=== PATIENT | male | born 1960 | race Caucasian/White ===

== ENCOUNTER → 2016-06-20 | Outpatient (CLI) | payer MEDICARE ==
--- NOTE | 2016-06-20 10:23 | CT ---
EXAM DESCRIPTION: CT CHEST WITH IV CONTRAST; CT ABDOMEN WITHOUT THEN WITH IV CONTRAST CLINICAL HISTORY: 55 y/o M, RECTAL CANCER COMPARISON: October 10, 2013. TECHNIQUE: After oral and IV contrast were administered thin slice axial images of the chest and abdomen were acquired. The data was reformatted for interpretation. FINDINGS: There is no axillary or supraclavicular lymphadenopathy. Sclerotic foci noted about the endplates of T11, T10 and T9. These are likely related to degeneration. No lytic or blastic lesion seen within the abdomen or pelvis. There is mass effect upon the trachea which is seen on the 1st image. There is likely a mass seen resulting in deviation of the trachea to the right. This mass demonstrates central calcifications and may be compatible with a mucinous metastatic lesion. Heart size is unremarkable. No pericardial disease. No lymphadenopathy. Multiple metastatic lesions seen within the chest, bilateral lungs. The largest is seen traversing both the inferior margin of the right upper lobe and the right middle lobe. This measures 5.8 cm craniocaudal by 6.3 cm AP x 10.0 cm craniocaudal. Metastatic lesions noted within the spleen, liver and right kidney. Colonostomy noted. Atherosclerotic disease noted within the abdominal aorta. Negative for aneurysm. No definitive lymphadenopathy noted. IMPRESSION: Today's exam demonstrates metastatic lesions to bilateral lungs, the left larynx, the right kidney, the spleen and the liver. The metastatic disease to the spleen and right kidney are new when compared to the CT of the abdomen and pelvis from October of 2013. The low density noted within the liver was noted on prior study. These findings are compatible with worsening of patient's metastatic disease. The the left laryngeal mass is incompletely evaluated on today's exam. The patient is at risk of laryngeal obstruction. Recommend dedicated imaging. Extensive emphysema noted. Electronically signed by: Scottie Colorado MD 06/20/2016 10:21
== END ==
LOC: CT 08:16
PROVIDERS: ATTEND Internal Medicine Medical Oncology
DX: C20 Malignant neoplasm of rectum (principal); C78.39 Secondary malignant neoplasm of other respiratory organs; C78.89 Secondary malignant neoplasm of other digestive organs; C79.01 Secondary malignant neoplasm of right kidney and renal pelvis; C78.7 Secondary malignant neoplasm of liver and intrahepatic bile duct; J43.9 Emphysema, unspecified

== ENCOUNTER 2016-07-23 20:19 | Emergency (ER) | payer MEDICARE ==
[2016-07-23] MEDS ORDERED: IPRATROPIUM/ALBUTEROL 3 ML VIAL NEB ONE ×2 (20:23→20:42)
[2016-07-23] MEDS ORDERED: HYDROcodone 10MG/APAP 325MG 1 EA TAB PO ONE (20:53)
--- NOTE | 2016-07-23 21:39 | ED.PDOC ---
History of Present Illness - General Chief Complaint: Respiratory Problem Stated Complaint: short of breath Time Seen by Provider: 07/23/16 21:35 Source: RN notes reviewed, Vital Signs reviewed, family Exam Limitations: physical impairment - patient on tracheostomy - History of Present Illness Initial Comments: Jing 56 y/o male with history of colon cancer with distant metastases to multiple organs brought by home health nurse after they called up with patient reported SOB.Under went multiple chemo but cancer continue to spread the last oncologist that saw him stating further treatment is futile and and need to be in hospice carewhrupal smith is planning this 07/26/2016 Timing/Duration: 4-6 hours Severity: severe Improving Factors: nothing Worsening Factors: other - metastatic colon ca Associated Symptoms: diaphoresis Allergies/Adverse Reactions: Allergies Meperidine [From Demerol HCl] Allergy (Verified 04/27/15 15:03) Penicillins Allergy (Verified 04/27/15 15:03) Review of Systems - Review of Systems Constitutional: States: diaphoresis, other - weight loss progressive EENTM: States: no symptoms reported Respiratory: States: short of breath Cardiology: States: no symptoms reported Gastrointestinal/Abdominal: States: no symptoms reported Genitourinary: States: no symptoms reported Musculoskeletal: States: no symptoms reported Skin: States: no symptoms reported Neurological: States: no symptoms reported Endocrine: States: no symptoms reported Hematologic/Lymphatic: States: no symptoms reported Past Medical History (General) - Patient Medical History Hx Cardiac Disorders: No Hx Congestive Heart Failure: No Hx Diabetes: No Hx Cancer: Yes - colon with distant metastases Surgical History: cancer surgery - colon Family Medical History - Family History Father Living Status: Cause of : colorectal CA Hx Family Cancer: Yes - colon Physical Exam - Physical Exam General Appearance: Alert, Anxious, Obvious distress Ears, Nose, Throat: hearing grossly normal, normal ENT inspection, normal pharynx, other - tracheostomy patent Neck: non-tender, other - tracheostomy tube in place Respiratory: decreased breath sounds, other - tachypneic Cardiovascular/Chest: no gallop, no murmur, tachycardia Peripheral Pulses: radial,right: 2+, radial,left: 2+ Gastrointestinal/Abdominal: normal bowel sounds, non tender, no pulsatile mass Back Exam: normal inspection, no CVA tenderness, no vertebral tenderness Extremity: normal range of motion, non-tender, normal inspection Neurologic: alert Skin Exam: normal color, warm/dry Progress - Progress Progress: 07/24/16 01:05 Discuss DNR on this patient initially signed it but retracted his signed form and wanting to be Full code again.He is about to be admitted to palliative care 07/26/2016. 07/24/16 01:12 He is presently on 5 liters o2/nc and aerosolized 02 at 15 liters - Results/Orders Results/Orders: 07/23/16 20:23 SVN/Updraft Therapy ONCE 07/23/16 21:21 Arterial Blood Gas Stat Laboratory Results WBC 15.0 K/mm3 (4.8-10.8) H 07/23/16 20:21 RBC 3.46 M/mm3 (4.70-6.10) L 07/23/16 20:21 Hgb 10.9 gm/dL (14.0-18.0) L 07/23/16 20:21 Hct 32.8 % (42.0-52.0) L 07/23/16 20:21 MCV 94.8 fl (80.0-94.0) H 07/23/16 20:21 MCH 31.5 pg (27.0-31.0) H 07/23/16 20:21 MCHC 33.1 g/dL (33.0-37.0) 07/23/16 20:21 RDW 15.0 % (11.5-14.5) H 07/23/16 20:21 Plt Count 411 K/mm3 (130-400) H 07/23/16 20:21 MPV 6.8 fl (7.40-10.4) L 07/23/16 20:21 Absolute Neuts (auto) 12.90 K/uL (1.8-6.8) H 07/23/16 20:21 Absolute Lymphs (auto) 1.00 K/uL (1.0-3.4) 07/23/16 20:21 Absolute Monos (auto) 1.00 K/uL (0.2-0.8) H 07/23/16 20:21 Absolute Eos (auto) 0.10 K/uL (0.0-0.4) 07/23/16 20:21 Absolute Basos (auto) 0.10 K/uL (0.0-0.1) 07/23/16 20:21 Neutrophils % 85.8 % (42.0-78.0) H 07/23/16 20:21 Lymphocytes % 6.8 % (20.0-50.0) L 07/23/16 20:21 Monocytes % 6.6 % (2.0-9.0) 07/23/16 20:21 Eosinophils % 0.4 % (1.0-5.0) L 07/23/16 20:21 Basophils % 0.4 % (0.0-2.0) 07/23/16 20:21 D-Dimer, Quantitative 1657 ng/mL (0-230) H* 07/23/16 20:21 Sodium 127 mmol/L (135-145) L 07/23/16 20:21 Potassium 4.6 mmol/L (3.6-5.0) 07/23/16 20:21 Chloride 93 mmol/L (101-111) L 07/23/16 20:21 Carbon Dioxide 25 mmol/L (21-31) 07/23/16 20:21 Anion Gap 13.6 (12-18) 07/23/16 20:21 BUN 22 mg/dL (7-18) H 07/23/16 20:21 Creatinine 0.59 mg/dL (0.6-1.3) L 07/23/16 20:21 BUN/Creatinine Ratio 37.3 (10-20) H 07/23/16 20:21 Random Glucose 123 mg/dL (70-105) H 07/23/16 20:21 Serum Osmolality 259.9 mOsm/L (275-295) L 07/23/16 20:21 Calcium 8.9 mg/dL (8.4-10.2) 07/23/16 20:21 Total Bilirubin 0.5 mg/dL (0.2-1.0) 07/23/16 20:21 AST 50 IU/L (10-42) H 07/23/16 20:21 ALT 29 IU/L (10-60) 07/23/16 20:21 Alkaline Phosphatase 163 IU/L (42-121) H 07/23/16 20:21 B-Natriuretic Peptide 119.0 pg/ml (0-100) H 07/23/16 20:21 Serum Total Protein 6.8 gm/dL (6.4-8.2) 07/23/16 20:21 Albumin 2.9 g/dl (3.2-5.5) L 07/23/16 20:21 Globulin 3.9 gm/dL (2.3-3.5) H 07/23/16 20:21 Albumin/Globulin Ratio 0.7 (1.1-1.9) L 07/23/16 20:21 Patient ABO/Rh A NEGATIVE 07/23/16 21:00 - EKG/XRAY/CT EKG: Sinus, Tachy XRAY: chest - right basilar pneumothorax;multifocal opacities Departure - Departure Clinical Impression: Acute dyspnea, Colon cancer metastasized to multiple sites, Pneumothorax on right, Status post tracheostomy Time of Disposition: 01:11 - D/W Dr. J Luis Dawkins[facility] Disposition: Transfer to Hospital Condition: Fair Departure Forms: ED Discharge - Pt. Copy, Patient Portal Self Enrollment
[2016-07-23] MEDS ORDERED: HYDROmorphone HCL INJ 2 MG/ML VIAL IV ONE (23:11)
[2016-07-23] MEDS ORDERED: CYCLOBENZAPRINE HCL 10 MG TAB PO ONE (23:47)
[2016-07-24] MEDS ORDERED: HYDROcodone 10MG/APAP 325MG 1 EA TAB PO ONE (01:42)
[2016-07-24] MEDS ORDERED: HYDROcodone 10MG/APAP 325MG 1 EA TAB ONE (01:47)
[2016-07-24 03:55] VITALS: BP 152/94; TEMP 97.9; O2SAT 91
--- NOTE | 2016-08-08 00:04 | RAD ---
EXAM: Chest,1 View CLINICAL INDICATION: 56-year-old male with shortness of breath. TECHNIQUE: Single view, AP portable chest was obtained. COMPARISON: 08/24/2010. FINDINGS: Tracheostomy tube present at the level of the thoracic inlet. LEFT chest wall port catheter tip terminates at the cephalad aspect superior vena cava. Innumerable foci of rounded opacification present throughout the bilateral lungs suggestive of metastasis. Small focal lucency present at the level of the RIGHT lung base compatible with pneumothorax. The pneumothorax measures approximately 3 cm from thew RIGHT chest wall. An approximately 2 cm from the diaphragmatic dome. The LEFT hemithorax reveals multifocal opacities compatible with metastasis without findings to suggest pneumothorax or pleural effusion. No right-sided pleural effusion. Deformity of the right-sided ribs may reflect sequela of prior trauma or surgery. The largest conglomerate opacification within the RIGHT hemithorax measures 12.4 cm in maximal dimension. The largest opacification on the LEFT at the level of the hilar region measures 3.5 cm in maximal diameter. IMPRESSION: 1. Small RIGHT basilar pneumothorax.2. Multifocal opacities as detailed above compatible with metastatic disease as detailed above. Electronically signed by: Dominga Estrada MD 07/23/2016 9:19 PM DIRECTOR OF NURSES REGISTRY
== END 2016-07-24 01:45 | disposition short-term general hospital (02) ==
LOC: ER 20:19
DX: C18.9 Malignant neoplasm of colon, unspecified (principal); C79.9 Secondary malignant neoplasm of unspecified site; J93.9 Pneumothorax, unspecified; R06.00 Dyspnea, unspecified; Z93.0 Tracheostomy status; Z88.0 Allergy status to penicillin; Z88.8 Allergy status to other drugs, medicaments and biological substances; Z80.0 Family history of malignant neoplasm of digestive organs
CPT/HCPCS: 36600; 71010; 80053; 82803; 82805; 83880; 85025; 85379; 86900; 86901; 94640; J1170; J7620

== ENCOUNTER 2016-07-28 18:09 | Inpatient (IN) | payer OTHER ==
[~2016-07-28 18:09] MED LIST: SODIUM CHLORIDE 0.9% 1000ML 1,000 ML IVS ONE
[2016-07-29] MEDS ORDERED: ACETAMINOPHEN SUPPOSITORY 650 MG PR ONE (01:07)
--- NOTE | 2016-07-29 09:33 | HP ---
SUPERVISING PHYSICIAN: J Luis Ness MD CHIEF COMPLAINT: Respiratory failure secondary to multiple problems related to a colorectal cancer metastasis. HISTORY OF PRESENT ILLNESS: Mr. Starks is a 56-year-old, male patient with a history of colon cancer status post resection who presented to the Emergency Department on 07/23/16 in [place] complaining of shortness of breath which had started two days previous to his admission. He has undergone multiple chemotherapy treatments, but now has metastasis to the lungs, larynx, liver. In the Emergency Department, he was complaining of shortness of breath and was eventually transferred to [facility] after it was discussed with the patient about a DNR status, however, he wanted to be fully resuscitated if possible and if not improving, to be put on hospice palliative care on 07/26/16. In the Emergency Room, he was found to have a right basilar pneumothorax with acute dyspnea secondary to metastasis at multiple sites as well as tracheostomy. He was transferred to [facility] where he underwent a chest tube placement and aggressive treatment with antibiotics and respiratory consultation. He continued to deteriorate at [facility] and on 07/28/16, he requested to be discharged to be placed on hospice for palliative care. He was then transferred at the request of the family to [facility] for inpatient hospice. PAST MEDICAL HISTORY: Per review of charts as the patient is unresponsive. 1. Colorectal cancer with metastasis to multiple sites including liver, lungs, and larynx. 2. History of drug, alcohol and tobacco abuse. 3. Recent admission to [facility] for complications secondary to a pneumothorax requiring chest tube placement. 4. History of tracheostomy secondary to metastasis to the larynx. PAST SURGICAL HISTORY: No surgeries listed other than recent tracheostomy and chest tube placement at [facility]. MEDICATIONS: Please refer to electronic medical record for updated list of past medications. ALLERGIES: DEMEROL, PENICILLINS. FAMILY HISTORY: Unremarkable. SOCIAL HISTORY: The patient is . He currently lives in [place]. He is a current smoker and has been a heavy smoker for many years. He has a history of street drugs and alcohol abuse. REVIEW OF SYSTEMS: Unobtainable secondary to the patients obtunded state. PHYSICAL EXAMINATION: GENERAL: The patient cachectic and unresponsive with agonal breathing, but appears to be comfortable. HEENT: Tracheostomy in place. Otherwise, not fully assessed secondary to the patients current unresponsiveness. NECK: No jugular venous distention noted. CHEST: Lungs are notable for rhonchi throughout with very diminished breath sounds, agonal rate. CARDIOVASCULAR: Regular rate and rhythm without any appreciable murmurs, gallops, or rubs. ABDOMEN: Thin with ileostomy in place. Bowel sounds are present. EXTREMITIES: Very thin with obvious muscle wasting secondary to rapid weight loss. NEUROLOGIC: The patient is unresponsive with a GCS of 3 with agonal respirations. LABORATORY: No studies were completed as the patient is an inpatient hospice patient. RADIOLOGY: No studies were completed as the patient is an inpatient hospice patient. ASSESSMENT: 1. Endstage metastatic cancer secondary to colorectal cancer. 2. History of hepatitis C. 3. History of recent admission to [facility] for respiratory distress secondary to right pneumothorax requiring chest tube placement having failed to respond to aggressive medical therapy, now being transitioned to comfort care measures for hospice care. PLAN: The patient was admitted to inpatient hospice on 07/28/16 for care and comfort measures. Hospice care is [facility] who has written orders per their protocol. The patients prognosis is grim and is expected to be within the next 24 to 48 hours as the patient is in agonal respirations and unresponsive. He will be started on a morphine [employer] basal pump as per protocol for hospice care. Multiple family members are present and I discussed the patients situation and they are very grateful for the care being provided. We will continue to follow the patient and family as needed until the patients ultimate expiration. #[id number] [facility]
[2016-07-29] MEDS ORDERED: MORPHINE PCA 1 MG/ML 100 ML BAG IVPB ONE (11:18)
[2016-07-29 11:33] VITALS: O2SAT 82
--- NOTE | 2016-07-30 11:38 | DS ---
SUPERVISING PHYSICIAN: Binu Thomson M.D. The patient was admitted on 07/28/16 and discharged on 07/29/16 after being on hospice. The patient around 7:00 on the morning of 07/29/16 pronounced by hospice nurse at [facility]. DISCHARGE DIAGNOSIS: 1. secondary to complications from metastatic rectal colon cancer with metastasis to the lungs, larynx and liver with the patient succumbing to advanced pneumonia with underlying pleural effusions and needing aggressive pulmonary management with chest tubes and antibiotics having failed to respond to treatment. HISTORY OF PRESENT ILLNESS: Mr. Starks is a 56-year-old, male patient that had a history of colon cancer status post resection who presented initially to the Emergency Department on 07/23/16 in [place] complaining of shortness of breath which had started two days previous to his admission. He has undergone multiple chemotherapy treatments and had noted to have metastasis to the lungs, larynx and liver from colorectal cancer. In the Emergency Department, he was complaining of shortness of breath and was eventually transferred to [facility] after it was discussed with the patient about a DNR status and he wanted to be fully resuscitated if possible and if not improving, to go to palliative care through hospice care on . In the Emergency Room, he was found to have a right basilar pneumothorax with acute dyspnea secondary to metastasis at multiple sites as well as tracheostomy. He was transferred to [facility] where he underwent a chest tube placement and aggressive treatment with antibiotics and respiratory consultation. He continued to deteriorate at [facility] and on 07/28/16, both patient and the family requested that he be discharged to be placed on hospice for palliative care. He was then at that point transferred at the request of the family to [facility] for inpatient hospice care through [facility]. LABORATORY/RADIOLOGY: There were no studies done as he was a hospice patient. HOSPITAL COURSE: Mr. Starks was admitted as noted in the History of Present Illness on hospice care for care and comfort measures only with anticipation of ultimate demise within 24 to 48 hours at time of admission. The patient was cared for by [facility]. He was provided pain management per protocol and kept comfortable. His family was at his side through the night and the patient ultimately on the pattern room attendant of 07/29/16. He was pronounced by hospice nurse and the body was released to the home as noted in his chart. PLAN: The patient on the morning of 07/29/16 as noted and hospice inpatient care pronounced by hospice nurse with [facility]. Please refer to full chart for full details of final disposition of the patient's body as he was released to the home at the request of family. Dr. Argueta will be notified of the patient's expiration. was expected and ultimately the patient was release to the home. #[id number] [facility]
== END 2016-07-29 11:15 | disposition expired | DRG 435 ==
LOC: MS 18:09
PROVIDERS: ADMIT Family Medicine; ATTEND Nurse Practitioner Family
DX: C78.7 Secondary malignant neoplasm of liver and intrahepatic bile duct (principal); J18.9 Pneumonia, unspecified organism; J91.8 Pleural effusion in other conditions classified elsewhere; C78.02 Secondary malignant neoplasm of left lung; C78.01 Secondary malignant neoplasm of right lung; R64 Cachexia; C78.39 Secondary malignant neoplasm of other respiratory organs; B19.20 Unspecified viral hepatitis C without hepatic coma; F17.210 Nicotine dependence, cigarettes, uncomplicated; Z51.5 Encounter for palliative care; Z85.048 Personal history of other malignant neoplasm of rectum, rectosigmoid junction, and anus; Z88.0 Allergy status to penicillin; Z88.5 Allergy status to narcotic agent; Z93.0 Tracheostomy status